=== PATIENT | male | born 1960 | race African-American/Black ===

== ENCOUNTER 2016-12-19 07:11 | Emergency (ER) | payer OTHER ==
[~2016-12-19] VITALS: Ht 188 cm; Wt 113.4 kg
[2016-12-19 07:39] VITALS: BP 147/89
== END 2016-12-19 08:18 | disposition home or self-care (01) ==
LOC: ER 07:11
DX: Z76.1 Encounter for health supervision and care of foundling (principal); Z13.6 Encounter for screening for cardiovascular disorders
CPT/HCPCS: 93005